=== PATIENT | female | born 1995 | race Caucasian/White ===

== ENCOUNTER 2017-01-05 21:53 | Emergency (ER) | payer OTHER ==
--- NOTE | 2017-01-06 00:39 | ED CLINICAL REPORT ---
Clinical Report - Physicians/Mid Levels [facility] [address] [place] [address] 01/05/2017 21:58 Patient: JEAN CARLOS VASQUEZ Time Seen: [id number]. Arrived- By private vehicle. Historian- patient. HISTORY OF PRESENT ILLNESS Chief Complaint: VOMITING and DIARRHEA. This started yesterday and is still present. It was abrupt in onset and has been constant but is not gone now. No recent travel. She has had nausea, vomiting, diarrhea and mild abdominal pain. The pain is described as located in the epigastrium. No black stools, bloody stools, constipation or flank pain. Has not recently been camping or on antibiotics. Possible bad food exposure (maybe tacos). The illness is described as moderate. Similar symptoms previously: None. Recent medical care: Not recently seen/assessed. REVIEW OF SYSTEMS No fever or skin rash. Currently : In 1st trimester. All systems otherwise negative, except as recorded above. PAST HISTORY See nurses notes. Additional Surgeries: no known surgeries. Medications: None. Allergies: No Known Drug Allergy. SOCIAL HISTORY Never smoker. No alcohol use or drug use. No recent travel. Is a local resident. did go to [place] 2 mo ago but not recently. PHYSICAL EXAM Appearance: Alert. Oriented X3. No acute distress. Eyes: Pupils equal, round and reactive to light. Eyes normal inspection. No pale conjunctivae or scleral icterus. ENT: Ears normal. Nose normal. Pharynx normal. Neck: Normal inspection. Neck supple. CVS: Normal heart rate and rhythm. Heart sounds normal. Pulses normal. Respiratory: No respiratory distress. Breath sounds normal. Abdomen: Soft and nontender. Bowel sounds normal. No organomegaly. No mass. (fundus not palpable). Skin: Skin warm and dry. Normal skin color. No rash. Normal skin turgor. Extremities: Extremities exhibit normal ROM. No lower extremity edema. LABS, X-RAYS, AND EKG Pelvic Sonogram: PROCEDURE: US OB 1ST TRIMESTER W/TRANSVAG INDICATION: Check viability, nausea, vomiting, diarrhea TECHNIQUE: Vale scale, color, and spectral Doppler transabdominal and endovaginal sonographic images of the first trimester gravid uterus were obtained. COMPARISON: None. FINDINGS: TRANSABDOMINAL SCANS: The gravid uterus is vertically oriented in position and contains a fundal gestational sac with a moderate decidual response. No perigestational hemorrhage. . parts are identified. Maternal kidneys are normal. TRANSVAGINAL SCANS: The cervix is closed. A pole is present with an average crown-rump length of 19.3 mm which corresponds to a 6-sqtg-9-day gestation. Yolk sac was identified. No perigestational hemorrhage. There is detectable cardiac activity at a rate of 169 beats per minute. Maternal right ovary measures 3.1 x 1.6 x 2.9 cm and has a normal echotexture and vascularity. The left ovary measures 2.5 x 1.5 and also demonstrates normal vascularity and follicular echotexture. There is probably a corpus luteum on the left ovary but a discrete cystic follicle was not identified. No adnexal or free pelvic fluid. IMPRESSION: 1. Single living intrauterine with gestational age of 8 weeks 3 days and estimated due date of 08/14/2017, in good agreement with the initially assigned gestational age (per patient report). 2. Closed cervix and no perigestational hemorrhage. The study was independently viewed by me and interpreted by the radiologist. The study was discussed with the radiologist (via pacs). Laboratory Tests: UA-Culture if indicated: (LILLY: 01/05/2017 22:30) ( MsgRcvd 01/05/2017 22:57) Final results Test Result Flag Units (Reference) URINE COLOR YELLOW URINE APPEARANCE CLEAR URINE GLUCOSE NEGATIVE (NEGATIVE) URINE BILIRUBIN NEGATIVE (NEGATIVE) URINE KETONE 1+ (NEGATIVE) URINE SPECIFIC GRAVITY 1.020 (1.010-1.030) URINE PH 6.0 (5.0-8.0) URINE PROTEIN NEGATIVE (NEGATIVE) URINE UROBILINOGEN 0.2 EU/dL (0.2-1.0) URINE NITRITE NEGATIVE (NEGATIVE) URINE BLOOD TRACE-INTACT (NEGATIVE) URINE LEUK ESTERASE NEGATIVE (NEGATIVE) URINE RBC 0-1 rbc/hpf (0-1) URINE WBC 0-1 wbc/hpf (0-1) URINE EPITHELIAL CELLS 0-1 EPI/hpf (0-5) URINE BACTERIA TRACE (<1+) (NONE SEEN) URINE COMMENT CULT NOT INDICATED URINE CULTURES ARE SET-UP BASED ON THE FOLLOWING CRITERIA:POSITIVE NITRITEPOSITIVE LEUKOCYTE ESTERASEGREATER THAN 10 WHITE BLOOD CELLSMODERATE (2+) OR GREATER BACTERIA Urine: (LILLY: 01/05/2017 22:30) ( MsgRcvd 01/05/2017 22:50) Final results Test Result Flag Units (Reference) URINE POSITIVE CBC w Diff: (LILLY: 01/05/2017 23:30) ( MsgRcvd 01/05/2017 23:43) Final results Test Result Flag Units (Reference) WHITE BLOOD COUNT 6.3 K/uL (4.5-11.5) RED BLOOD COUNT 4.18 M/uL (4.00-5.20) HEMOGLOBIN 13.1 gm/dL (12.0-16.0) HEMATOCRIT 38.9 % (36.0-46.0) MEAN CELL VOLUME 93 fL (80-100) MEAN CORPUSCULAR HGB 31 pg (26-34) MEAN CORPUSCULAR HGB CONC 34 g/dL (31-37) RED CELL DISTRIBUTION WIDTH 11.9 % (11.6-14.8) PLATELET COUNT 267 K/uL (150-400) LYMPH % 13.7 L % (25-40) MONO % 7.3 % (3-14) GRANULOCYTE % 79.0 (53-90) . PROGRESS AND PROCEDURES Course of Care: the patient is a 22-year-old female with recent diagnosis of presenting for evaluation of nausea vomiting and diarrhea. Patient with remote travel to [place]. No other risk factors for more sinister causes of the diarrhea on history. Patient's examination is benign. No signs of abdominal tenderness. The patient has a surgical abdomen. Patient will be evaluated with laboratory studies including urinalysisand liver function studies. Patient is agreeable to the treatment and plan. we will also evaluate the patient's current with an ultrasound because she has not had her first confirmation ultrasound at this point. The patient states that she is in the process of finding an HEADING UP MACHINE OPERATOR. The patient's workup was remarkable for the findings above. No other acute abnormalities noted on patient's workup. After having a long discussion with the patient in regards to nausea medications. Patient was agreeable to having some nausea medication provided to her. Patient did express some concerns with the Zofran. Patient was not prescribed her Zofran. Discussed with the patient her workup here in the emergency department including diagnosis, home care, follow-up, and return precautions. All questions have been answered. The patient expressed understanding of these instructions and was agreeable to them. Prior to patient's departure from the emergency department she was noted to be resting in bed and in no acute distress. Repeat abdominal exam continues to be reassuring. Did not feel patient has a surgical abdomen. Disposition: Discharged. Condition: good. CLINICAL IMPRESSION Vomiting with nausea (acute). Diarrhea (acute). Acute epigastric abdominal pain. Mild dehydration (acute). INSTRUCTIONS Warnings: GENERAL WARNINGS: Return or contact your physician immediately if your condition worsens or changes unexpectedly, if not improving as expected, or if other problems arise. SPECIFICALLY, return if you develop pain, fever, vomiting, the inability to keep fluids down, blood in vomitus, blood in diarrhea, fainting or lightheadedness. Your Current Medications: CONTINUE TAKING THE FOLLOWING MEDICATIONS: None*. Prescription Medications: Reglan 10 mg tablets: take 1 orally every 8 hours as needed for nausea or vomiting. Dispense thirty (30). No refills. Substitution is permissible. Follow-up: Return to the emergency department as needed. Follow up with your doctor in three days. Reason for referral: recheck today's concerns. Summary of care provided to patient via paper. Screening today revealed the patient's blood pressure to be in the normal range. The patient should follow up with a primary care provider for blood pressure management. Understanding of the discharge instructions verbalized by patient. (Electronically signed by Romero Garcia Dr. 01/07/2017 16:56)
--- NOTE | 2017-01-06 00:39 | ED NURSING NOTES ---
Clinical Report - Nurses [facility] [address] [place] [address] 01/05/2017 21:58 [id number] Triage time 22:05 Jan 05 2017. Acuity: LEVEL 3. Chief Complaint: ABDOMINAL PAIN, NAUSEA, VOMITING and DIARRHEA. Alert. DIAMOND COMA SCORE: [place] Coma Scale: 15- eyes open spontaneously (4); best verbal response- oriented x 4 (5); best motor response- obeys commands (6). --22:19 Scott Feliciano R.N. 22:11 01/05/17. BP: 122/63. HR: 76. RR: 16. O2 saturation: 100% on room air. Temp: 99 F. Pain level now: 10/04. Additional comments: Abdominal Pain. --22:19 Scott Feliciano R.N. Weight: 62.5 kg stated. Height/Length: 63 inches Per Patient. BMI: 24.4. --22:14 Scott Feliciano R.N. Medications None. --22:15 Scott Feliciano R.N. Medication/allergy information source: the patient. --22:19 Scott Feliciano R.N. Allergies No Known Drug Allergy. --22:15 Scott Feliciano R.N. History Arrived by private vehicle. Historian: patient. Accompanied by family and sister. Primary physician ([facility]). ( Abd Pain associated with N/V/D starting this morning ~ 15 hours ago. Pt states that she is 8 weeks .). This started today. Onset. (about 15 hours ago). She has had nausea, vomiting, diarrhea and abdominal pain. Treatment CONTENT ASSISTANT: (Licorice tablets). PAST MEDICAL HX: Immunizations: up-to-date. Currently . In 1st trimester. confirmed with sonogram. SURGERY HX: No history of previous surgery. SOCIAL HX: Never smoker. No alcohol use or drug use. Recent travel- [place] (about 2 months ago). No infectious disease exposure. ABUSE ASSESSMENT: No report of abuse. FALL RISK ASSESSMENT: Fall risk assessment completed. No fall risk identified. NUTRITIONAL RISK ASSESSMENT: The nutritional risk assessment revealed no deficiencies. FUNCTIONAL ASSESSMENT: Functional assessment: no impairments noted. LEARNING NEEDS ASSESSMENT: The learning needs assessment revealed no barriers. SKIN INTEGRITY ASSESSMENT: Skin integrity risk assessment completed. No skin integrity risk identified. --22:19 Scott Feliciano R.N. PROBLEMS: UTI - Urinary Tract Infection. Immunizations. LNMP - Last Normal Menstrual Period. --22:17 Scott Feliciano R.N. Interventions ID band on patient. To treatment room. --22:19 Scott Feliciano R.N. PHYSICAL ASSESSMENT Ambulatory to room. GENERAL / NEURO / PSYCH: Alert. Oriented X 4. Appears in pain. HEENT: Mucous membranes are pink. RESPIRATORY: Respirations not labored. CVS: Normal sinus rhythm noted. GI / : Abdomen soft. Abdominal tenderness in the lower abdomen. SKIN: Skin is warm and dry. --22:20 Scott Feliciano R.N. NURSING PROGRESS NOTES Patient gowned. Reassurance given. Patient identifiers checked. Call light placed in reach. Side rails up x 1. Bed placed in lowest position. Brakes of bed on. Patient ready for evaluation- chart flagged and ED physician notified. --22:20 Scott Feliciano R.N. 22:43 01/05/17. Patient ID band checked for patient name, birthdate and medical record number: family confirmed. Clean catch urine collected with return of yellow-colored clear urine; odor is normal; sample sent to lab for urinalysis and culture. Specimen labeled in the presence of the patient. --22:43 Scott Feliciano R.N. 23:34 01/05/2017 Site #1 started via IV in the right antecubital space with an 20g angiocath, with aseptic technique and good blood return; one attempt. Blood drawn: rainbow set. Labeled in the presence of the patient and sent to the lab. Saline lock flushed with 10 mL saline. --23:50 Scott Feliciano R.N. 23:35 01/05/2017 Started bag #1 1000 mL IV Fluids IV NS (Saline); at 1000 mL/hr over 60 minute(s) via site #1. Allergies verified and confirmed 5 rights. IV patency established. IV site checked: no pain, redness, or swelling. IV flushed thoroughly pre- and post-medication administration. --23:50 Scott Feliciano R.N. 23:40 01/05/2017 Reglan (Metoclopramide HCl) IVP 10 mg given over 2 minute(s) via site #1. Allergies verified and confirmed 5 rights. IV patency established. IV site checked: no pain, redness, or swelling. IV flushed thoroughly pre- and post-medication administration. IVP given by RN. --23:50 Scott Feliciano R.N. 00:35 01/06/2017 IV Fluids IV NS Discontinued: bag #1 infused. Total amount infused: 1000 mL. IV patency established. IV site checked: no pain, redness, or swelling. IV flushed thoroughly. --00:55 Scott Feliciano R.N. 00:45 01/06/2017 Site #1 removed upon discharge. Catheter intact. Bandaid applied. --01:01 Scott Feliciano R.N. DISPOSITION / DISCHARGE 00:49 01/06/17. BP: 185/51. HR: 81. RR: 16. O2 saturation: 100% on room air. Temp: 98.4 F (oral). Pain level now: 0/10. --00:51 Scott Feliciano R.N. Departure time: 0049. --00:52 Scott Feliciano R.N. 00:49. Condition at departure: improved. No learning barriers present. Discharge instructions provided and reviewed with the patient. Reviewed medication(s) (prescription given to pt). Reviewed referral to family practice for followup. Patient verbalized understanding. Written instructions provided in Yakut. The patient was discharged by the physician. She was discharged home and accompanied by family and hot pond operator. She left the Emergency Department ambulatory and via private vehicle. Apprise Counselor driving. --00:54 Scott Feliciano R.N. Locked/Released at 01/06/2017 1:42 by Scott Feliciano R.N.
--- NOTE | 2017-01-06 00:39 | ED NURSING NOTES ---
Clinical Report - Nurses [facility] [address] [place] [address] 01/05/2017 21:58 [id number] Triage time 22:05 Jan 05 2017. Acuity: LEVEL 3. Chief Complaint: ABDOMINAL PAIN, NAUSEA, VOMITING and DIARRHEA. Alert. DIAMOND COMA SCORE: [place] Coma Scale: 15- eyes open spontaneously (4); best verbal response- oriented x 4 (5); best motor response- obeys commands (6). --22:19 Scott Feliciano R.N. 22:11 01/05/17. BP: 122/63. HR: 76. RR: 16. O2 saturation: 100% on room air. Temp: 99 F. Pain level now: 10/04. Additional comments: Abdominal Pain. --22:19 Scott Feliciano R.N. Weight: 62.5 kg stated. Height/Length: 63 inches Per Patient. BMI: 24.4. --22:14 Scott Feliciano R.N. Medications None. --22:15 Scott Feilciano R.N. Medication/allergy information source: the patient. --22:19 Scott Feliciano R.N. Allergies No Known Drug Allergy. --22:15 Scott Feliciano R.N. History Arrived by private vehicle. Historian: patient. Accompanied by family and sister. Primary physician ([facility]). ( Abd Pain associated with N/V/D starting this morning ~ 15 hours ago. Pt states that she is 8 weeks .). This started today. Onset. (about 15 hours ago). She has had nausea, vomiting, diarrhea and abdominal pain. Treatment DIETARY SERVICES MANAGER: (Licorice tablets). PAST MEDICAL HX: Immunizations: up-to-date. Currently . In 1st trimester. confirmed with sonogram. SURGERY HX: No history of previous surgery. SOCIAL HX: Never smoker. No alcohol use or drug use. Recent travel- [place] (about 2 months ago). No infectious disease exposure. ABUSE ASSESSMENT: No report of abuse. FALL RISK ASSESSMENT: Fall risk assessment completed. No fall risk identified. NUTRITIONAL RISK ASSESSMENT: The nutritional risk assessment revealed no deficiencies. FUNCTIONAL ASSESSMENT: Functional assessment: no impairments noted. LEARNING NEEDS ASSESSMENT: The learning needs assessment revealed no barriers. SKIN INTEGRITY ASSESSMENT: Skin integrity risk assessment completed. No skin integrity risk identified. --22:19 Scott Feliciano R.N. PROBLEMS: UTI - Urinary Tract Infection. Immunizations. LNMP - Last Normal Menstrual Period. --22:17 Scott Feliciano R.N. Interventions ID band on patient. To treatment room. --22:19 Scott Feliciano R.N. PHYSICAL ASSESSMENT Ambulatory to room. GENERAL / NEURO / PSYCH: Alert. Oriented X 4. Appears in pain. HEENT: Mucous membranes are pink. RESPIRATORY: Respirations not labored. CVS: Normal sinus rhythm noted. GI / : Abdomen soft. Abdominal tenderness in the lower abdomen. SKIN: Skin is warm and dry. --22:20 Scott Feliciano R.N. NURSING PROGRESS NOTES Patient gowned. Reassurance given. Patient identifiers checked. Call light placed in reach. Side rails up x 1. Bed placed in lowest position. Brakes of bed on. Patient ready for evaluation- chart flagged and ED physician notified. --22:20 Scott Feliciano R.N. 22:43 01/05/17. Patient ID band checked for patient name, birthdate and medical record number: family confirmed. Clean catch urine collected with return of yellow-colored clear urine; odor is normal; sample sent to lab for urinalysis and culture. Specimen labeled in the presence of the patient. --22:43 Scott Feliciano R.N. 23:34 01/05/2017 Site #1 started via IV in the right antecubital space with an 20g angiocath, with aseptic technique and good blood return; one attempt. Blood drawn: rainbow set. Labeled in the presence of the patient and sent to the lab. Saline lock flushed with 10 mL saline. --23:50 Scott Feliciano R.N. 23:35 01/05/2017 Started bag #1 1000 mL IV Fluids IV NS (Saline); at 1000 mL/hr over 60 minute(s) via site #1. Allergies verified and confirmed 5 rights. IV patency established. IV site checked: no pain, redness, or swelling. IV flushed thoroughly pre- and post-medication administration. --23:50 Scott Feliciano R.N. 23:40 01/05/2017 Reglan (Metoclopramide HCl) IVP 10 mg given over 2 minute(s) via site #1. Allergies verified and confirmed 5 rights. IV patency established. IV site checked: no pain, redness, or swelling. IV flushed thoroughly pre- and post-medication administration. IVP given by RN. --23:50 Scott Feliciano R.N. 00:35 01/06/2017 IV Fluids IV NS Discontinued: bag #1 infused. Total amount infused: 1000 mL. IV patency established. IV site checked: no pain, redness, or swelling. IV flushed thoroughly. --00:55 Scott Feliciano R.N. 00:45 01/06/2017 Site #1 removed upon discharge. Catheter intact. Bandaid applied. --01:01 Scott Feliciano R.N. DISPOSITION / DISCHARGE 00:49 01/06/17. BP: 185/51. HR: 81. RR: 16. O2 saturation: 100% on room air. Temp: 98.4 F (oral). Pain level now: 0/10. --00:51 Scott Feliciano R.N. Departure time: 0049. --00:52 Scott Feliciano R.N. 00:49. Condition at departure: improved. No learning barriers present. Discharge instructions provided and reviewed with the patient. Reviewed medication(s) (prescription given to pt). Reviewed referral to family practice for followup. Patient verbalized understanding. Written instructions provided in Kiswahili. The patient was discharged by the physician. She was discharged home and accompanied by family and squeegeer and former. She left the Emergency Department ambulatory and via private vehicle. Review Specialist driving. --00:54 Scott Feliciano R.N. Locked/Released at 01/06/2017 1:42 by Scott Feliciano R.N.
--- NOTE | 2017-01-06 00:39 | ED ORDER SUMMARY ---
..... Patient: JEAN CARLOS VASQUEZ OrderSheet [facility] VisitID: [id number] [address] [address] 22y, F Registration Date/Time: 01/05/2017 ORDER SHEET Weight: 62.5 kg (stated) Allergies: No Known Drug Allergy GENERAL ORDERS: UA-Culture if indicated Urgent (22:40 01/05/2017 Aziza R.NKaren verbal order read back to Ashu Rivas) (22:40 Reatelli R.N.) Urine Urgent (22:40 01/05/2017 Aziza R.NKaren verbal order read back to Ashu Rivas) (22:40 Aziza R.N.) (Cancelled: Duplicate Order23:17 Ashu Rivas) CBC w Diff Urgent (23:17 01/05/2017 Ashu Rivas) (Ack 23:28 Erna ER Flat Folding Machine Operator) (23:48 Aziza R.N.) CMP Urgent (23:17 01/05/2017 Ashu Rivas) (Ack 23:28 Erna ER Flat Folding Machine Operator) (23:48 Aziza R.N.) Lipase Urgent (23:17 01/05/2017 Ashu Rivas) (Ack 23:28 Erna ER Flat Folding Machine Operator) (23:48 omanelli R.N.) Serum Quantitative Urgent (23:17 01/05/2017 Ashu Rivas) (Ack 23:28 Erna ER Flat Folding Machine Operator) (23:48 Aziza R.N.) Pulse oximeter (23:17 01/05/2017 Ashu Rivas) (Ack 23:28 Erna ER Flat Folding Machine Operator) (0:15 omanelli R.N.) US OB 1st Trimester (> 2 mo ago) Urgent (23:18 01/05/2017 Ashu Rivas) (Ack 23:28 Erna ER Flat Folding Machine Operator) (0:15 omanelli R.N.) MEDICATION ORDERS: IV FLUIDS: IV NS : initial bolus 1000 mL (1000 mL/hr), then none - for X1 (NOW) (23:17 01/05/2017 Ashu Rivas) (Ack 23:27 JQuivey R.N.) (23:50 omanleón R.N.) Reglan IV 10 mg (NOW) (23:18 01/05/2017 Ashu Rivas) (Ack 23:27 JQuivejonathan R.N.) (23:50 JRomanelli R.N.) IV NS : initial bolus 1000 mL (1000 mL/hr), then none - for X1 (NOW) (23:59 01/05/2017 Ashu Rivas) (Cancelled: Patient Left0:48 omanleón R.N.) ORDER SHEET NOTES: [Electronically signed by Scott Feliciano R.N. (01:42 01/06/2017)] [Electronically signed by Romero Garcia Dr. (16:56 01/07/2017)] [Electronically locked/signed by Scott Feliciano R.N. (01:42 01/06/2017)]
--- NOTE | 2017-01-06 00:39 | ED ORDER SUMMARY ---
..... Patient: JEAN CARLOS VASQUEZ OrderSheet [facility] VisitID: [id number] [address] [place] [address] 22y, F Registration Date/Time: 01/05/2017 ORDER SHEET Weight: 62.5 kg (stated) Allergies: No Known Drug Allergy GENERAL ORDERS: UA-Culture if indicated Urgent (22:40 01/05/2017 Aziza R.NKaren verbal order read back to Ashu Rivas) (22:40 Retaelli R.N.) Urine Urgent (22:40 01/05/2017 Aziza R.NKaren verbal order read back to Ashu Rivas) (22:40 Aziza R.N.) (Cancelled: Duplicate Order23:17 Ashu Rivas) CBC w Diff Urgent (23:17 01/05/2017 Ashu Rivas) (Ack 23:28 Erna ER Application Release Manager) (23:48 Aziza R.N.) CMP Urgent (23:17 01/05/2017 Ashu Rivas) (Ack 23:28 Erna ER Application Release Manager) (23:48 Aziza R.N.) Lipase Urgent (23:17 01/05/2017 Ashu Rivas) (Ack 23:28 Erna ER Application Release Manager) (23:48 omanelli R.N.) Serum Quantitative Urgent (23:17 01/05/2017 Ashu Rivas) (Ack 23:28 Erna ER Application Release Manager) (23:48 Aziza R.N.) Pulse oximeter (23:17 01/05/2017 Ashu Rivas) (Ack 23:28 Erna ER Application Release Manager) (0:15 omanelli R.N.) US OB 1st Trimester (> 2 mo ago) Urgent (23:18 01/05/2017 Ashu Rivas) (Ack 23:28 Erna ER Application Release Manager) (0:15 omanelli R.N.) MEDICATION ORDERS: IV FLUIDS: IV NS : initial bolus 1000 mL (1000 mL/hr), then none - for X1 (NOW) (23:17 01/05/2017 Ashu Rivas) (Ack 23:27 JQuivey R.N.) (23:50 omanleón R.N.) Reglan IV 10 mg (NOW) (23:18 01/05/2017 Ashu Rivas) (Ack 23:27 JQuivejonathan R.N.) (23:50 JRomanelli R.N.) IV NS : initial bolus 1000 mL (1000 mL/hr), then none - for X1 (NOW) (23:59 01/05/2017 Ashu Rivas) (Cancelled: Patient Left0:48 omanleón R.N.) ORDER SHEET NOTES: [Electronically signed by Scott Feliciano R.N. (01:42 01/06/2017)] [Electronically signed by Romero Garcia Dr. (16:56 01/07/2017)] [Electronically locked/signed by Scott Feliciano R.N. (01:42 01/06/2017)]
--- NOTE | 2017-01-06 09:58 | DIAGNOSTIC IMAGING REPORT ---
PROCEDURE: US OB 1ST TRIMESTER W/TRANSVAG INDICATION: Check viability, nausea, vomiting, diarrhea TECHNIQUE: Vale scale, color, and spectral Doppler transabdominal and endovaginal sonographic images of the first trimester gravid uterus were obtained. COMPARISON: None. FINDINGS: TRANSABDOMINAL SCANS: The gravid uterus is vertically oriented in position and contains a fundal gestational sac with a moderate decidual response. No perigestational hemorrhage. . parts are identified. Maternal kidneys are normal. TRANSVAGINAL SCANS: The cervix is closed. A pole is present with an average crown-rump length of 19.3 mm which corresponds to a 8-poia-1-day gestation. Yolk sac was identified. No perigestational hemorrhage. There is detectable cardiac activity at a rate of 169 beats per minute. Maternal right ovary measures 3.1 x 1.6 x 2.9 cm and has a normal echotexture and vascularity. The left ovary measures 2.5 x 1.5 and also demonstrates normal vascularity and follicular echotexture. There is probably a corpus luteum on the left ovary but a discrete cystic follicle was not identified. No adnexal or free pelvic fluid. IMPRESSION: 1. Single living intrauterine with gestational age of 8 weeks 3 days and estimated due date of 08/14/2017, in good agreement with the initially assigned gestational age (per patient report). 2. Closed cervix and no perigestational hemorrhage.
--- NOTE | 2017-01-07 16:57 | ED MAR SUMMARY ---
..... Medication Administration Record [facility] [address] [place] [address] Patient: JEAN CARLOS VASQUEZ Visit ID: [id number] 22y, F Weight: 62.5 kg Height/Length: 63 in BMI: 24.4 ALLERGIES: No Known Drug Allergy Start 23:35 01/05/2017 Scott Feliciano RKarenN., Stop 00:35 01/06/2017 Scott Feliciano R.N. Medication Administered: IV NS (SALINE), Dose: IV Fluids over 60 minute(s), Rate: 1000 mL/hr, Dispensed: 1000 mL bag, Site: #1 right AC. Medication Ordered: IV NS : initial bolus 1000 mL (1000 mL/hr), then none - for X1 (NOW). Given 23:40 01/05/2017 Scott Feliciano, R.N. Medication Administered: REGLAN [IVP] (METOCLOPRAMIDE HCL), Dose: 10 mg IVP over 2 minute(s), Site: #1 right AC. Medication Ordered: Reglan IV 10 mg (NOW).
--- NOTE | 2017-01-07 16:57 | ED MAR SUMMARY ---
..... Medication Administration Record [facility] [address] [place] [address] Patient: JEAN CARLOS VASQUEZ Visit ID: [id number] 22y, F Weight: 62.5 kg Height/Length: 63 in BMI: 24.4 ALLERGIES: No Known Drug Allergy Start 23:35 01/05/2017 Scott Feliciano RKarenN., Stop 00:35 01/06/2017 Scott Feliciano R.N. Medication Administered: IV NS (SALINE), Dose: IV Fluids over 60 minute(s), Rate: 1000 mL/hr, Dispensed: 1000 mL bag, Site: #1 right AC. Medication Ordered: IV NS : initial bolus 1000 mL (1000 mL/hr), then none - for X1 (NOW). Given 23:40 01/05/2017 Scott Feliciano, R.N. Medication Administered: REGLAN [IVP] (METOCLOPRAMIDE HCL), Dose: 10 mg IVP over 2 minute(s), Site: #1 right AC. Medication Ordered: Reglan IV 10 mg (NOW).
--- NOTE | 2017-01-07 16:57 | ED DISCHARGE INSTRUCTIONS ---
Patient: JEAN CARLOS VAQSUEZ General Instructions [facility] VisitID: [id number] [place] [address] 22y, F Registration Date/Time: 01/05/2017 Vomiting with nausea (acute). Diarrhea (acute). Acute epigastric abdominal pain. Mild dehydration (acute). INSTRUCTIONS Warnings: GENERAL WARNINGS: Return or contact your physician immediately if your condition worsens or changes unexpectedly, if not improving as expected, or if other problems arise. SPECIFICALLY, return if you develop pain, fever, vomiting, the inability to keep fluids down, blood in vomitus, blood in diarrhea, fainting or lightheadedness. Your Current Medications: CONTINUE TAKING THE FOLLOWING MEDICATIONS: None*. Prescription Medications: Reglan 10 mg tablets: take 1 orally every 8 hours as needed for nausea or vomiting. Dispense thirty (30). No refills. Substitution is permissible. Follow-up: Return to the emergency department as needed. Follow up with your doctor in three days. Reason for referral: recheck today's concerns. Summary of care provided to patient via paper. Screening today revealed the patient's blood pressure to be in the normal range. The patient should follow up with a primary care provider for blood pressure management. Understanding of the discharge instructions verbalized by patient. ADDITIONAL INFORMATION Vomiting [6Yr-Adult] Vomiting is a common symptom that may be due to different causes. These include gastroenteritis ("stomach flu"), food poisoning and gastritis. There are other more serious causes of vomiting which may be hard to diagnose early in the illness. Therefore, it is important to watch for the warning signs listed below. The main danger from repeated vomiting is dehydration. This is due to excess loss of water and minerals from the body. When this occurs, body fluids must be replaced. Home Care: If symptoms are severe, rest at home for the next 24 hours. You may use acetaminophen (Tylenol) or ibuprofen (Motrin, Advil) to control fever, unless another medicine was prescribed. [NOTE : If you have chronic liver or kidney disease or ever had a stomach ulcer or GI bleeding, talk with your doctor before using these medicines.] (Aspirin should never be used in anyone under 18 years of age who is ill with a fever. It may cause severe liver damage.) Avoid tobacco and alcohol use, which may worsen your symptoms. If medicines for vomiting were prescribed, take as directed. Once vomiting stops, then follow these guidelines: During The First 12-24 Hours follow the diet below: FRUIT JUICES: Apple, grape juice, clear fruit drinks, and electrolyte replacement drinks. BEVERAGES: Soft drinks without caffeine; mineral water (plain or flavored), decaffeinated tea and coffee. SOUPS: Clear broth, consomm and bouillon DESSERTS: Plain gelatin, popsicles and fruit juice bars. As you feel better, you may add 6-8 ounces of yogurt per day. During The Next 24 Hours you may add the following to the above: Hot cereal, plain toast, bread, rolls, crackers Plain noodles, rice, mashed potatoes, chicken noodle or rice soup Unsweetened canned fruit (avoid pineapple), bananas Limit caffeine and chocolate. No spices or seasonings except salt. During The Next 24 Hours Gradually resume a normal diet, as you feel better and your symptoms lessen. Follow Up with your doctor as advised if you are not improving over the next 2-3 days. Get Prompt Medical Attention if any of the following occur: Constant right-sided lower abdominal pain or increasing general abdominal pain Continued vomiting (unable to keep liquids down) for 24 hours Frequent diarrhea (more than 5 times a day); blood (red or black color) or mucus in diarrhea Reduced urine output or extreme thirst Weakness, dizziness or fainting Unusually drowsy or confused Fever of 100.4F (38C) oral or higher, not better with fever medication Yellow color of the eyes or skin Diarrhea, Uncertain Cause (Adult, Report Pending) Diarrhea has several possible causes. Commonstomach fluis caused by a virus. Food poisoning, bacteria or parasites are other causes for diarrhea. Only diarrhea caused by bacteria or parasites requires treatment with an antibiotic. Diarrhea from a virus or food poisoning improves with simple home treatment. A stool sample is needed to make the diagnosis of an infection with bacteria or parasites. Up to three stool specimens may be required to diagnose This may take up to two days to get the result. It may be necessary to wait until the stool test is complete to make the diagnosis and select the best antibiotic to prescribe. Home Care: If symptoms are severe, rest at home for the next 24 hours or until you are feeling better. You may use acetaminophen (Tylenol) or ibuprofen (Motrin, Advil) to control fever, unless another medicine was prescribed. [NOTE: If you have chronic liver or kidney disease or ever had a stomach ulcer or GI bleeding, talk with your doctor before using these medicines.] (Aspirin should never be used in anyone under 18 years of age who is ill with a fever. It may cause severe liver damage.) Avoid tobacco, caffeine and alcohol, which may worsen your symptoms. If anti-diarrhea medicine was prescribed, take this only as directed. Sometimes anti-diarrhea medicine can make your condition worse if the cause is an infectious diarrhea. Therefore, anti-diarrhea medicine should not be taken for this condition unless advised by your doctor. During The First 12-24 Hours follow the diet below: BEVERAGES: Sport drinks like Gatorade, soft drinks without caffeine; annmarie josesito, mineral water (plain or flavored), decaffeinated tea and coffee. SOUPS: Clear broth, consomm and bouillon DESSERTS: Plain gelatin (Jell-O), popsicles and fruit juice bars. During The Next 24 Hours you may add the following to the above: Hot cereal, plain toast, bread, rolls, crackers Plain noodles, rice, mashed potatoes, chicken noodle or rice soup Unsweetened canned fruit (avoid pineapple), bananas Limit fat intake to less than 15 grams per day by avoiding margarine, butter, oils, mayonnaise, sauces, gravies, fried foods, peanut butter, meat, poultry and fish. Limit fiber; avoid raw or cooked vegetables, fresh fruits (except bananas) and bran cereals. Limit caffeine and chocolate. No spices or seasonings except salt. During The Next 24 Hours Gradually resume a normal diet, as you feel better and your symptoms lessen. Follow Up with your doctor or as advised if you are not improving over the next two days. If you were asked to bring a specimen from home, bring the sample on the day of collection. You may call in 2 days (or as directed) for the results. Get Prompt Medical Attention if any of the following occur: Increasing abdominal pain or constant lower right abdominal pain Continued vomiting (unable to keep liquids down) Frequent diarrhea (more than 5 times a day) Blood in vomit or stool (black or red color) Reduced oral intake Dark urine, reduced urine output Weakness, dizziness, fainting Drowsiness, confusion, stiff neck or seizure Fever of 100.4F (38C) oral or higher, not better with fever medication New rash Abdominal Pain, Unknown Cause (Female) The exact cause of your abdominal (stomach) pain is not certain. This does not mean that this is something to worry about, or the right tests were not done. Everyone likes to know the exact cause of the problem, but sometimes with abdominal pain, there is no clear-cut cause, and this could be a good thing. The good news is that your symptoms can be treated, and you will feel better. Your condition does not seem serious now; however, sometimes the signs of a serious problem may take more time to appear. For this reason,it is important for you to watch for any new symptoms, problems,or worsening of your condition. Over the next few days, the abdominal pain may come and go, or be continuous. Other common symptoms can include nausea and vomiting. Sometimes it can be difficult to tell if you feel nauseous, you may just feel bad and not associate that feeling with nausea. Constipation, diarrhea, and a fever may go along with the pain. The pain may continue even if treated correctly over the following days. Depending on how things go, sometimes the cause can become clear and may require further or different treatment. Additional evaluations, medications, or tests may be needed. Home care Your health care provider may prescribe medications for pain, symptoms, or an infection. Follow the health care provider's instructions for taking these medications. General care Rest until your next exam. No strenuous activities. Try to find positions that ease discomfort. A small pillow placed on the abdomen may help relieve pain. Something warm on your abdomen (such as a heating pad) may help, but be careful not to burn yourself. Diet Do not force yourself to eat, especially if having cramps, vomiting, or diarrhea. Water is important so you do not get dehydrated. Soup may also be good. Sports drinks may also help, especially if they are not too acidic. Make sure you don't drink sugary drinks as this can make things worse. Take liquids in small amounts. Do not guzzle them. Caffeine sometimes makes the pain and cramping worse. Avoid dairy products if you have vomiting or diarrhea. Don't eat large amounts at a time. Wait a few minutes between bites. Eat a diet low in fiber (called a low-residue diet). Foods allowed include refined breads, white rice, fruit and vegetable juices without pulp, tender meats. These foods will pass more easily through the intestine. Avoid whole-grain foods, whole fruits and vegetables, meats, seeds and nuts, fried or fatty foods, dairy, alcohol and spicy foods until your symptoms go away. Follow-up care Follow up with your health care provider as instructed, or if your pain does not begin to improve in the next 24 hours. When to seek medical care Seek prompt medical care if any of the following occur: Pain gets worse or moves to the right lower abdomen New or worsening vomiting or diarrhea Swelling of the abdomen Unable to pass stool for more than three days Fever of 100.4F (38C) or higher, or as directed by your healthcare provider. Blood in vomit or bowel movements (dark red or black color) Jaundice (yellow color of eyes and skin) Weakness, dizziness Chest, arm, back, neck or jaw pain Unexpected vaginal bleeding or missed period Call 911 Call emergency services if any of the following occur: Trouble breathing Confusion Fainting or loss of consciousness Rapid heart rate Seizure Dehydration (Adult) Dehydration occurs when your body loses too much fluid. This may be the result of vomiting a lot or from diarrhea,sweating a lot, or a high fever. It may also happen if you dont drink enough fluid when youre sick. Misuse of diuretics (water pills) can also be a cause. Symptoms include thirst and feeling dizzy, weak, fatigued, or very drowsy. The diet described below is usually enough to treat most cases. Sometimes you may needmedicine. Home Care Follow these guidelines for home care: Drink at least 12 8-ounce glasses of fluid every day to overcome the dehydration. Fluid may include water; orange juice; lemonade; apple, grape, and cranberry juice; clear fruit drinks; electrolyte replacement and sports drinks; and teas and coffee without caffeine. If you have been diagnosed with a kidney disease, ask your doctor how much and what types of fluids you should drink to prevent dehydration. If you have kidney disease, drinking too much fluid can cause it build up in the your body and be dangerous to your health. If you have fever, muscle aching, or headache from a viral syndrome, you may useacetaminophen or ibuprofen, unless another medicine was prescribed for this.If you have chronic liver or kidney disease or ever had a stomach ulcer or GI bleeding, talk with your doctor before using these medicines. Don't take aspirin if you are younger than 18 and are ill with a fever.Aspirin raises the chance forsevere liver injury. Follow-up care Follow up with your health care provider if you don't get better in the next 24 to 48 hours. When to seek medical care Get prompt medical attention if any of theseoccur: Continued vomiting (cant keep liquids down) Frequent diarrhea (more than 5 times a day); blood (red or black color) or mucus in diarrhea Blood in vomit or stool Swollen abdomen or increasing abdominal pain Weakness, dizziness, or fainting Unusually drowsy or confused Reduced urine output or extreme thirst Fever of 100.4 F (38 C) oral or higher that does not get better with fever medication Metoclopramide Hydrochloride Oral tablet What is this medicine? METOCLOPRAMIDE (met oh kloe PRA mide) is used to treat the symptoms of gastroesophageal reflux disease (GERD) like heartburn. It is also used to treat people with slow emptying of the stomach and intestinal tract. How should I use this medicine? Take this medicine by mouth with a glass of water. Follow the directions on the prescription label. Take this medicine on an empty stomach, about 30 minutes before eating. Take your doses at regular intervals. Do not take your medicine more often than directed. Do not stop taking except on the advice of your doctor or health field care advocate. A special MedGuide will be given to you by the pharmacist with each prescription and refill. Be sure to read this information carefully each time. Talk to your weatherization field technician regarding the use of this medicine in children. Special care may be needed. What side effects may I notice from receiving this medicine? Side effects that you should report to your doctor or health field care advocate as soon as possible: allergic reactions like skin rash, itching or hives, swelling of the face, lips, or tongue abnormal production of milk in females breast enlargement in both males and females change in the way you walk difficulty moving, speaking or swallowing drooling, lip smacking, or rapid movements of the tongue excessive sweating fever involuntary or uncontrollable movements of the eyes, head, arms and legs irregular heartbeat or palpitations muscle twitches and spasms unusually weak or tired Side effects that usually do not require medical attention (report to your doctor or health field care advocate if they continue or are bothersome): change in sex drive or performance depressed mood diarrhea difficulty sleeping headache menstrual changes restless or nervous What may interact with this medicine? acetaminophen cyclosporine digoxin medicines for blood pressure medicines for diabetes, including insulin medicines for hay fever and other allergies medicines for depression, especially an Monoamine Oxidase Inhibitor (MAOI) medicines for Parkinson's disease, like levodopa medicines for sleep or for pain tetracycline What if I miss a dose? If you miss a dose, take it as soon as you can. If it is almost time for your next dose, take only that dose. Do not take double or extra doses. Where should I keep my medicine? Keep out of the reach of children. Store at room temperature between 20 and 25 degrees C (68 and 77 degrees F). Protect from light. Keep container tightly closed. Throw away any unused medicine after the expiration date. What should I tell my health care provider before I take this medicine? They need to know if you have any of these conditions: breast cancer depression diabetes heart failure high blood pressure kidney disease liver disease Parkinson's disease or a movement disorder pheochromocytoma seizures stomach obstruction, bleeding, or perforation an unusual or allergic reaction to metoclopramide, procainamide, sulfites, other medicines, foods, dyes, or preservatives or trying to get breast-feeding What should I watch for while using this medicine? It may take a few weeks for your stomach condition to start to get better. However, do not take this medicine for longer than 12 weeks. The longer you take this medicine, and the more you take it, the greater your chances are of developing serious side effects. If you are an elderly patient, a female patient, or you have diabetes, you may be at an increased risk for side effects from this medicine. Contact your doctor immediately if you start having movements you cannot control such as lip smacking, rapid movements of the tongue, involuntary or uncontrollable movements of the eyes, head, arms and legs, or muscle twitches and spasms. Patients and their families should watch out for worsening depression or thoughts of suicide. Also watch out for any sudden or severe changes in feelings such as feeling anxious, agitated, panicky, irritable, hostile, aggressive, impulsive, severely restless, overly excited and hyperactive, or not being able to sleep. If this happens, especially at the beginning of treatment or after a change in dose, call your doctor. Do not treat yourself for high fever. Ask your doctor or health field care advocate for advice. You may get drowsy or dizzy. Do not drive, use machinery, or do anything that needs mental alertness until you know how this drug affects you. Do not stand or sit up quickly, especially if you are an older patient. This reduces the risk of dizzy or fainting spells. Alcohol can make you more drowsy and dizzy. Avoid alcoholic drinks. You have been given the following additional information: Vomiting (6Y-Adult) Diarrhea, Unk Cause (Adult) Report Pendg Abdominal Pain, Unknown Cause, (Female) Dehydration (Adult) Metoclopramide Hydrochloride Oral tablet (Electronically signed by Romero Garcia Dr. 01/07/2017 16:56)
--- NOTE | 2017-01-07 16:57 | ED MED RECONCILIATION SUMMARY ---
Patient: JEAN CARLOS VASQUEZ Medication Reconciliation Report [facility] VisitID: [id number] [address] [place] [address] 22y, F Registration Date/Time: 01/05/2017 Weight: 62.5 kg Height/Length: 63 in. BMI: 24.4 ALLERGIES: No Known Drug Allergy The patient's Home Medications are listed below: NONE. The source(s) of the original Home Medication information: patient The following Medications were given to the patient in the Emergency Department: IV NS IV Fluids bolus 0, then 1000 mL/hr, administered: 01/05/2017 11:35:00 PM Reglan [IVP] IVP 10 mg, administered: 01/05/2017 11:40:00 PM The following Medications were prescribed to the patient: Reglan 10 mg tablets: take 1 orally every 8 hours as needed for nausea or vomiting. Dispense thirty (30). No refills. Substitution is permissible. -- Romero Garcia Dr.
--- NOTE | 2017-01-07 16:57 | ED MED RECONCILIATION SUMMARY ---
Patient: JEAN CARLOS VASQUEZ Medication Reconciliation Report [facility] VisitID: [id number] [address] [place] [address] 22y, F Registration Date/Time: 01/05/2017 Weight: 62.5 kg Height/Length: 63 in. BMI: 24.4 ALLERGIES: No Known Drug Allergy The patient's Home Medications are listed below: NONE. The source(s) of the original Home Medication information: patient The following Medications were given to the patient in the Emergency Department: IV NS IV Fluids bolus 0, then 1000 mL/hr, administered: 01/05/2017 11:35:00 PM Reglan [IVP] IVP 10 mg, administered: 01/05/2017 11:40:00 PM The following Medications were prescribed to the patient: Reglan 10 mg tablets: take 1 orally every 8 hours as needed for nausea or vomiting. Dispense thirty (30). No refills. Substitution is permissible. -- Romero Garcia Dr.
== END 2017-01-06 00:45 | disposition home or self-care (01) ==
LOC: ED SRH 21:53
DX: O21.1 Hyperemesis gravidarum with metabolic disturbance (principal); O26.891 Other specified pregnancy related conditions, first trimester; R10.13 Epigastric pain; R19.7 Diarrhea, unspecified; Z3A.08 8 weeks gestation of pregnancy
CPT/HCPCS: 90004; 90100; 90197; 92235; 93070; 95059